=== PATIENT | male | born 1975 | race Hispanic/Latino ===

== ENCOUNTER 2017-03-02 05:22 | Emergency (ER) | payer SELFPAY ==
[~2017-03-02] VITALS: Ht 162.6 cm; Wt 68.1 kg
[~2017-03-02 05:22] MED LIST: NO HOME MEDS
[2017-03-02 05:48] LABS: HEMATOCRIT 42.7 % (39.0-50.0); HEMOGLOBIN 15.1 g/dl (14.0-18.0); IMMATURE GRANULOCYTES 0.6 % (0.0-1.0); MEAN CELL VOLUME 88.2 fL CALC (80.0-100.0); MEAN CORPUSCULAR HGB 31.2 pG CALC (26.0-32.0); MEAN CORPUSCULAR HGB CONC 35.4 g/L CALC (32.0-36.0); NEUT# 5.34 thou/uL (1.82-7.42); RED BLOOD COUNT 4.84 mill/uL (4.70-6.10); RED CELL DISTRI WIDTH 11.9 % (11.5-15.5)
[2017-03-02 05:58] LABS: ALBUMIN 4.4 g/dL (3.2-5.0); ALKALINE PHOSPHATASE 176 u/l (38-126); AMYLASE 98 u/l (30-110); ANION GAP 16 (6-22 (CALC)); BILIRUBIN, TOTAL 0.5 mg/dL (0.0-1.4); BUN 17 mg/dL (9-20); BUN/CREATININE RATIO 16 (12-20 (CALC)); CALCIUM 9.3 mg/dL (8.4-10.2); CARBON DIOXIDE 24 mmol/l (22-30); CHLORIDE 102 mmol/l (95-108); CREATININE 1.1 mg/dL (0.7-1.3); GFR > 60 ML/MIN (>=60 (CALC)); GFR FOR AFR.AMER. > 60 ML/MIN (>=60 (CALC)); GLUCOSE 168 mg/dL (75-110); LIPASE 112 u/l (23-300); POTASSIUM 3.4 mmol/l (3.5-5.1); SGOT/AST 50 u/l (17-59); SGPT/ALT 103 u/l (21-72); SODIUM 139 mmol/l (137-146); TOTAL PROTEIN 8.3 g/dL (6.3-8.2)
[2017-03-02 06:10] LABS: MYOGLOBIN 20 ng/mL (0 - 121)
[2017-03-02] MEDS ORDERED: CLARITHROMYC500 M1 PO (08:17)
[2017-03-02] MEDS ORDERED: NEXIUM40 M1 PO (08:17)
[2017-03-02] MEDS ORDERED: ZOFRAN ODT4 MG PO (08:17)
[2017-03-02] MEDS ORDERED: AMOXICILLIN500 MG PO (08:17)
[2017-03-02] MEDS ORDERED: METRONIDAZOL500 MG PO (08:17)
[2017-03-02 08:42] VITALS: BP 151/70
== END 2017-03-02 08:42 | disposition home or self-care (01) | DRG 392 ==
LOC: ED 05:22
PROVIDERS: Emergency Medicine
DX: R10.13 Epigastric pain (principal); B96.81 Helicobacter pylori [H. pylori] as the cause of diseases classified elsewhere; R11.0 Nausea
CPT/HCPCS: Q9967; S0164

== ENCOUNTER 2017-03-16 19:39 | Inpatient (IN) | payer OTHER ==
[~2017-03-16] VITALS: Ht 162.6 cm; Wt 62.6 kg
[~2017-03-16 19:39] MED LIST changes: +AMOXICILLIN500 MG PO; +CLARITHROMYC500 M1 PO; +METRONIDAZOL500 MG PO; +NEXIUM40 M1 PO; +ZOFRAN ODT4 MG PO
[2017-03-16 20:05] LABS: HEMOGLOBIN 14.7 g/dl (14.0-18.0); IMMATURE GRANULOCYTES 0.5 % (0.0-1.0); MEAN CELL VOLUME 86.9 fL CALC (80.0-100.0); MEAN CORPUSCULAR HGB 31.1 pG CALC (26.0-32.0); MEAN CORPUSCULAR HGB CONC 35.9 g/L CALC (32.0-36.0); NEUT# 19.03 thou/uL (1.82-7.42); RED BLOOD COUNT 4.72 mill/uL (4.70-6.10); RED CELL DISTRI WIDTH 11.7 % (11.5-15.5)
[2017-03-16 20:24] LABS: ALBUMIN 4.5 g/dL (3.2-5.0); ALKALINE PHOSPHATASE 169 u/l (38-126); ANION GAP 15 (6-22 (CALC)); BILIRUBIN, TOTAL 1.9 mg/dL (0.0-1.4); BUN 15 mg/dL (9-20); BUN/CREATININE RATIO 16 (12-20 (CALC)); CALCIUM 9.1 mg/dL (8.4-10.2); CARBON DIOXIDE 27 mmol/l (22-30); CHLORIDE 104 mmol/l (95-108); CREATININE 0.9 mg/dL (0.7-1.3); GFR > 60 ML/MIN (>=60 (CALC)); GFR FOR AFR.AMER. > 60 ML/MIN (>=60 (CALC)); GLUCOSE 134 mg/dL (75-110); POTASSIUM 3.5 mmol/l (3.5-5.1); SGOT/AST 328 u/l (17-59); SGPT/ALT 211 u/l (21-72); SODIUM 142 mmol/l (137-146); TOTAL PROTEIN 7.9 g/dL (6.3-8.2)
[2017-03-16 20:36] LABS: MYOGLOBIN 34 ng/mL (0 - 121)
[2017-03-16 21:01] LABS: AMYLASE 4007 u/l (30-110)
[2017-03-16 21:02] LABS: LIPASE 40792 u/l (23-300)
[2017-03-16 22:24] LABS: URINE BILIRUBIN - DIPSTICK NEGATIVE (NEGATIVE); URINE BLOOD DIPSTICK NEGATIVE (NEGATIVE); URINE CLARITY CLEAR; URINE COLOR YELLOW; URINE GLUCOSE - DIPSTICK NEGATIVE (NEGATIVE); URINE KETONE TRACE mg/dL (NEGATIVE); URINE LEUK ESTERASE NEGATIVE (NEGATIVE); URINE NITRITE - DIPSTICK NEGATIVE (Negative); URINE PH 5.5 (4.5-8.0); URINE PROTEIN - DIPSTICK NEGATIVE (NEG-TRACE); URINE UROBILINOGEN - DIPSTICK 0.2 E.U./dL (0.2)
[2017-03-17] VITALS (7 sets, daily range): BP systolic 93–111; BP diastolic 54–71
[2017-03-17 05:55] LABS: HEMATOCRIT 39.5 % (39.0-50.0); IMMATURE GRANULOCYTES 0.4 % (0.0-1.0); MEAN CELL VOLUME 87.2 fL CALC (80.0-100.0); MEAN CORPUSCULAR HGB 30.9 pG CALC (26.0-32.0); MEAN CORPUSCULAR HGB CONC 35.4 g/L CALC (32.0-36.0); NEUT# 13.13 thou/uL (1.82-7.42); RED BLOOD COUNT 4.53 mill/uL (4.70-6.10); RED CELL DISTRI WIDTH 11.7 % (11.5-15.5)
[2017-03-17 06:19] LABS: ALBUMIN 3.5 g/dL (3.2-5.0); ALKALINE PHOSPHATASE 152 u/l (38-126); ANION GAP 12 (6-22 (CALC)); BUN 11 mg/dL (9-20); BUN/CREATININE RATIO 14 (12-20 (CALC)); CARBON DIOXIDE 28 mmol/l (22-30); CHLORIDE 108 mmol/l (95-108); CREATININE 0.8 mg/dL (0.7-1.3); GFR > 60 ML/MIN (>=60 (CALC)); GFR FOR AFR.AMER. > 60 ML/MIN (>=60 (CALC)); GLUCOSE 112 mg/dL (75-110); POTASSIUM 4.2 mmol/l (3.5-5.1); SGOT/AST 208 u/l (17-59); SGPT/ALT 186 u/l (21-72); SODIUM 144 mmol/l (137-146); TOTAL PROTEIN 6.2 g/dL (6.3-8.2)
[2017-03-17 06:24] LABS: AMYLASE 1670 u/l (30-110)
[2017-03-17 06:37] LABS: LIPASE 9281 u/l (23-300)
[2017-03-18 02:57] VITALS: BP 103/60
[2017-03-18 05:54] LABS: HEMOGLOBIN 12.2 g/dl (14.0-18.0); IMMATURE GRANULOCYTES 0.5 % (0.0-1.0); MEAN CELL VOLUME 89.3 fL CALC (80.0-100.0); MEAN CORPUSCULAR HGB 31.1 pG CALC (26.0-32.0); MEAN CORPUSCULAR HGB CONC 34.9 g/L CALC (32.0-36.0); NEUT# 7.25 thou/uL (1.82-7.42); RED BLOOD COUNT 3.92 mill/uL (4.70-6.10); RED CELL DISTRI WIDTH 12.1 % (11.5-15.5)
[2017-03-18 06:05] LABS: AMYLASE 890 u/l (30-110); ANION GAP 12 (6-22 (CALC)); BUN 10 mg/dL (9-20); BUN/CREATININE RATIO 15 (12-20 (CALC)); CALCIUM 8.3 mg/dL (8.4-10.2); CARBON DIOXIDE 24 mmol/l (22-30); CHLORIDE 107 mmol/l (95-108); CREATININE 0.7 mg/dL (0.7-1.3); GFR > 60 ML/MIN (>=60 (CALC)); GFR FOR AFR.AMER. > 60 ML/MIN (>=60 (CALC)); GLUCOSE 83 mg/dL (75-110); POTASSIUM 3.7 mmol/l (3.5-5.1); SODIUM 139 mmol/l (137-146)
[2017-03-18 06:30] LABS: LIPASE 7169 u/l (23-300)
[2017-03-18 08:04] VITALS: BP 99/62
[2017-03-18 14:00] VITALS: BP 99/56
[2017-03-18 19:00] VITALS: BP 103/60
[2017-03-19 00:25] VITALS: BP 91/58
[2017-03-19 04:00] VITALS: BP 103/62
[2017-03-19 08:50] VITALS: BP 110/69
[2017-03-19 11:13] VITALS: BP 120/69
[2017-03-19 12:13] LABS: AMYLASE 320 u/l (30-110)
[2017-03-19 12:20] LABS: LIPASE 2926 u/l (23-300)
[2017-03-19 16:05] VITALS: BP 111/71
[2017-03-19 19:05] VITALS: BP 109/67
[2017-03-20] VITALS: BP 102/66
[2017-03-20 04:40] VITALS: BP 106/67
[2017-03-20 05:08] LABS: HEMATOCRIT 34.2 % (39.0-50.0); HEMOGLOBIN 12.1 g/dl (14.0-18.0); IMMATURE GRANULOCYTES 0.4 % (0.0-1.0); MEAN CELL VOLUME 87.5 fL CALC (80.0-100.0); MEAN CORPUSCULAR HGB 30.9 pG CALC (26.0-32.0); MEAN CORPUSCULAR HGB CONC 35.4 g/L CALC (32.0-36.0); NEUT# 2.49 thou/uL (1.82-7.42); RED BLOOD COUNT 3.91 mill/uL (4.70-6.10); RED CELL DISTRI WIDTH 11.6 % (11.5-15.5)
[2017-03-20 05:09] LABS: AMYLASE 166 u/l (30-110); ANION GAP 10 (6-22 (CALC)); BUN 4 mg/dL (9-20); BUN/CREATININE RATIO 5 (12-20 (CALC)); CALCIUM 8.3 mg/dL (8.4-10.2); CARBON DIOXIDE 27 mmol/l (22-30); CHLORIDE 106 mmol/l (95-108); CREATININE 0.7 mg/dL (0.7-1.3); GFR > 60 ML/MIN (>=60 (CALC)); GFR FOR AFR.AMER. > 60 ML/MIN (>=60 (CALC)); GLUCOSE 88 mg/dL (75-110); LIPASE 1172 u/l (23-300); POTASSIUM 3.4 mmol/l (3.5-5.1); SODIUM 140 mmol/l (137-146)
[2017-03-20 07:42] VITALS: BP 117/67
[2017-03-20 11:15] VITALS: BP 135/74
== END 2017-03-20 13:22 | disposition home or self-care (01) | DRG 440 ==
LOC: ENPENDDIS → ED 19:39 → ED-I 21:00 → ED 21:50 → MS2 21:52
PROVIDERS: Emergency Medicine; Internal Medicine; ADMIT Internal Medicine; ATTEND Internal Medicine
DX: K85.10 Biliary acute pancreatitis without necrosis or infection (principal); K80.20 Calculus of gallbladder without cholecystitis without obstruction
CPT/HCPCS: J1650; Q9967; S0164